=== PATIENT | male | born 1950 | race Caucasian/White ===

== ENCOUNTER 2016-09-12 16:48 | Inpatient (IN) | payer MEDICARE, BC ==
[~2016-09-12] VITALS: Ht 185.4 cm; Wt 120.3 kg
[2016-09-12] VITALS (15 sets, daily range): BP systolic 100–181; BP diastolic 74–99; PULSE 81–137; RESP 14–18; TEMP 98.1–98.7; O2SAT 95–98
[2016-09-12] MEDS ORDERED: MULT1TAB84 PO (17:00)
[2016-09-12] MEDS ORDERED: ATOR40TA16 PO (17:00)
[2016-09-12] MEDS ORDERED: PRAS10TA PO (17:00)
[2016-09-12] MEDS ORDERED: ASPI81CH37 CHEW (17:00)
--- NOTE | 2016-09-12 17:06 | PD ---
HPI Chief Complaint: Cardiac Complaint Time Seen by Provider: 16:51 Travel History International Travel<30 days: No Contact w/Intl Traveler<30days: No Traveled to known affect area: No History of Present Illness HPI The patient is a 65-year-old male who presents to the emergency department for elevated heart rate. The patient has a two-week history of elevated heart rate and palpitations, denies any chest pain, shortness of breath , increased shortness of breath with exertion, nausea, vomiting, or diaphoresis. The patient denies any history of atrial fibrillation or atrial flutter, does have a history of low heart rate secondary to medications that he was placed on after stent placement, was taken off of those medications. The patient does have a history of CAD with previous stent placement 3 years ago just outside of [place], [place]. The patient also has a history of hyperlipidemia which is controlled with atorvastatin. The patient denies any history of atrial fibrillation, atrial flutter, TIA, CVA, congestive heart failure, diabetes, or tobacco use. The patient does not currently have a primary physician. The patient denies any history of thyroid disorders. PFSH Past Medical History Narrative Medical CAD, hyperlipidemia Cardiac Catheterization: Yes High Cholesterol: Yes Coronary Artery Disease: Yes Tetanus Vaccination: Unknown Influenza Vaccination: No Past Surgical History Narrative Surgical 2 previous cardiac stents placed Body Medical Devices: Cardiac stents Social History Alcohol Use: Yes (Occ.) Tobacco Use: No Substance Use: No Allergies-Medications (Allergen,Severity, Reaction): Coded Allergies: No Known Allergies (Unverified , 09/12/16) Reported Meds & Prescriptions Reported Meds & Active Scripts Active Reported Multivitamin Adults (Multiple Vitamins W/ Minerals) 1 Tab 1 Tab PO DAILY Atorvastatin (Atorvastatin Calcium) 40 Mg Tab 40 Mg PO HS Effient (Prasugrel) 10 Mg Tab 10 Mg PO DAILY Aspirin Low Dose (Aspirin) 81 Mg Chew 81 Mg CHEW DAILY Review of Systems Except as stated in HPI: all other systems reviewed are Neg General / Constitutional: No: Fever HENT: No: Lightheadedness Cardiovascular: Positive: Palpitations, Tachycardia, No: Chest Pain or Discomfort, Diaphoresis, Dyspnea on exertion Respiratory: No: Shortness of Breath Gastrointestinal: No: Nausea, Vomiting, Abdominal Pain Musculoskeletal: No: Weakness, Edema Neurologic: No: Dizziness Physical Exam Narrative GENERAL: Awake, alert, pleasant 65-year-old male who appears his stated age and is in no acute respiratory distress. SKIN: Focused skin assessment warm/dry. HEAD: Atraumatic. Normocephalic. EYES: Pupils equal and round. No scleral icterus. No injection or drainage. ENT: No nasal bleeding or discharge. Mucous membranes pink and moist. NECK: Trachea midline. No JVD. CARDIOVASCULAR: Irregularly irregular with a heart rate in the 130s. RESPIRATORY: No accessory muscle use. Clear to auscultation. Breath sounds equal bilaterally. GASTROINTESTINAL: Abdomen soft, non-tender, nondistended. MUSCULOSKELETAL: No obvious deformities. No clubbing. No cyanosis. No edema. NEUROLOGICAL: Awake and alert. No obvious cranial nerve deficits. Motor grossly within normal limits. Normal speech. Nonfocal. PSYCHIATRIC: Appropriate mood and affect; insight and judgment normal. Data Data Last Documented VS Vital Signs Date Time Temp Pulse Resp B/P Pulse Ox O2 Delivery O2 Flow Rate FiO2 09/12/16 17:45 112 16 100/74 97 Room Air 09/12/16 17:00 98.1 Orders Ckmb (Isoenzyme) Profile (09/12/16 17:03) Complete Blood Count With Diff (09/12/16 17:03) Comprehensive Metabolic Panel (09/12/16 17:03) Magnesium (Mg) (09/12/16 17:03) Prothrombin Time / Inr (Pt) (09/12/16 17:03) Act Partial Throm Time (Ptt) (09/12/16 17:03) Chest, Single Ap (09/12/16 17:03) Ecg Monitoring (09/12/16 17:03) Bilateral Bp Monitoring (09/12/16 17:03) Iv Access Insert/Monitor (09/12/16 17:03) Oximetry (09/12/16 17:03) Oxygen Administration (09/12/16 17:03) Sodium Chloride 0.9% Flush (Ns Flush) (09/12/16 17:15) Sodium Chlorid 0.9% 500 Ml Inj (Ns 500 M (09/12/16 17:15) Diltiazem Inj (Cardizem Inj) (09/12/16 17:15) Thyroid Stimulating Hormone (09/12/16 17:06) Diltiazem Inj (Cardizem Inj) (09/12/16 17:30) CKMB (09/12/16 17:00) CKMB% (09/12/16 17:00) Sodium Chlorid 0.9% 500 Ml Inj (Ns 500 M (09/12/16 17:45) Troponin I (09/12/16 17:40) Admit Order (Ed Use Only) (09/12/16 17:56) Labs Laboratory Tests Test 09/12/16 17:00 White Blood Count 9.8 TH/MM3 Red Blood Count 5.44 MIL/MM3 Hemoglobin 17.3 GM/DL Hematocrit 50.8 % Mean Corpuscular Volume 93.3 FL Mean Corpuscular Hemoglobin 31.7 PG Mean Corpuscular Hemoglobin 34.0 % Concent Red Cell Distribution Width 12.6 % Platelet Count 243 TH/MM3 Mean Platelet Volume 8.8 FL Neutrophils (%) (Auto) 68.9 % Lymphocytes (%) (Auto) 21.9 % Monocytes (%) (Auto) 7.3 % Eosinophils (%) (Auto) 0.9 % Basophils (%) (Auto) 1.0 % Neutrophils # (Auto) 6.8 TH/MM3 Lymphocytes # (Auto) 2.1 TH/MM3 Monocytes # (Auto) 0.7 TH/MM3 Eosinophils # (Auto) 0.1 TH/MM3 Basophils # (Auto) 0.1 TH/MM3 CBC Comment DIFF FINAL Differential Comment Prothrombin Time 11.0 SEC Prothromb Time International 1.0 RATIO Ratio Activated Partial 28.5 SEC Thromboplast Time Sodium Level 139 MEQ/L Potassium Level 3.8 MEQ/L Chloride Level 103 MEQ/L Carbon Dioxide Level 27.7 MEQ/L Anion Gap 8 MEQ/L Blood Urea Nitrogen 20 MG/DL Creatinine 1.50 MG/DL Estimat Glomerular Filtration 47 ML/MIN Rate Random Glucose 120 MG/DL Calcium Level 9.3 MG/DL Magnesium Level 2.1 MG/DL Total Bilirubin 1.3 MG/DL Aspartate Amino Transf 31 U/L (AST/SGOT) Alanine Aminotransferase 37 U/L (ALT/SGPT) Alkaline Phosphatase 135 U/L Total Creatine Kinase 112 U/L Total Protein 8.2 GM/DL Albumin 4.1 GM/DL Thyroid Stimulating Hormone 2.460 uIU/ML 3rd Gen Exceptions Acute Myocardial Infarction ASA Not Given on Arrival: Already taken by patient Aspirin Comment: patient took his aspirin and his Effient MDM Medical Decision Making Medical Screen Exam Complete: Yes Emergency Medical Condition: Yes Medical Record Reviewed: Yes Interpretation(s) EKG reveals atrial flutter with variable block. Nonspecific ST changes. Heart rate 127. Laboratory Tests Test 09/12/16 17:00 White Blood Count 9.8 TH/MM3 Red Blood Count 5.44 MIL/MM3 Hemoglobin 17.3 GM/DL Hematocrit 50.8 % Mean Corpuscular Volume 93.3 FL Mean Corpuscular Hemoglobin 31.7 PG Mean Corpuscular Hemoglobin 34.0 % Concent Red Cell Distribution Width 12.6 % Platelet Count 243 TH/MM3 Mean Platelet Volume 8.8 FL Neutrophils (%) (Auto) 68.9 % Lymphocytes (%) (Auto) 21.9 % Monocytes (%) (Auto) 7.3 % Eosinophils (%) (Auto) 0.9 % Basophils (%) (Auto) 1.0 % Neutrophils # (Auto) 6.8 TH/MM3 Lymphocytes # (Auto) 2.1 TH/MM3 Monocytes # (Auto) 0.7 TH/MM3 Eosinophils # (Auto) 0.1 TH/MM3 Basophils # (Auto) 0.1 TH/MM3 CBC Comment DIFF FINAL Differential Comment Prothrombin Time 11.0 SEC Prothromb Time International 1.0 RATIO Ratio Activated Partial 28.5 SEC Thromboplast Time Sodium Level 139 MEQ/L Potassium Level 3.8 MEQ/L Chloride Level 103 MEQ/L Carbon Dioxide Level 27.7 MEQ/L Anion Gap 8 MEQ/L Blood Urea Nitrogen 20 MG/DL Creatinine 1.50 MG/DL Estimat Glomerular Filtration 47 ML/MIN Rate Random Glucose 120 MG/DL Calcium Level 9.3 MG/DL Magnesium Level 2.1 MG/DL Total Bilirubin 1.3 MG/DL Aspartate Amino Transf 31 U/L (AST/SGOT) Alanine Aminotransferase 37 U/L (ALT/SGPT) Alkaline Phosphatase 135 U/L Total Creatine Kinase 112 U/L Total Protein 8.2 GM/DL Albumin 4.1 GM/DL Chest x-ray reveals no acute disease. EKG #2 reveals atrial flutter with RVR, variable block. Nonspecific ST changes. Differential Diagnosis Differential diagnoses includes atrial fibrillation, atrial flutter, rapid ventricular response, hyperthyroidism, hyperkalemia, hypokalemia, dehydration, pulmonary embolism, congestive heart failure, CAD. Narrative Course IV was established, labs are drawn and sent, and the patient was placed on cardiac telemetry monitoring and continuous pulse oximetry monitoring. EKG was ordered and interpreted. The patient are detected aspirin and Effient earlier today, was administered Cardizem 15 mg intravenously and normal saline 500 cc. Chest x-ray was obtained. TSH and electrolytes were sent to lab. The patient' s heart rate initially came down to 100, however, elevated once again into the 120s and 130s. Patient's blood pressure came down to 100/74, therefore, he was re-bolused with normal saline 500 cc and placed on a Cardizem drip. CPK is unremarkable, chest x-ray is negative, patient will be need admission, echocardiogram, and wrist rectum fundoplication for possible anticoagulation. The patient is artery on Effient and aspirin, may need novel oral treatment for his new onset A. fib/A flutter. The patient will also need outpatient cardiology follow-up. Patient is comfortable with this plan of care. The patient does not have a local primary physician, therefore, the on-call medical service was paged for admission. Critical Care Narrative Aggregate critical care time was 35 minutes. Time to perform other separately billable procedures was not included in the critical care time. My time did not include minutes spent treating any other patients simultaneously or on activities that did not directly contribute to the patient's treatment. The services I provided to this patient were to treat and/or prevent clinically significant deterioration that could result in: Arrhythmia, nontoxic, hypoxia, pulmonary edema, cardiomyopathy, congestive heart failure. I provided critical care services requiring my management, as noted below: Chart data review, documentation time, medication orders and management, vital sign assessments/reviewing monitor data, ordering and reviewing lab tests, ordering and interpreting/reviewing x-rays and diagnostic studies, care of the patient and discussion of the patient with the admitting physicians. Physician Communication Physician Communication [facility] were paged for admission. I discussed the patient with Dr. Salinas who agrees with admission. Diagnosis Primary Impression: Atrial flutter with rapid ventricular response Admitting Information Admitting Physician Requests: Admit Condition: Stable Sebas Miles MD September 12, 2016 17:06
[2016-09-12] MEDS ORDERED: SODIUM CHLORID 0.9% 500 ML INJ 500 ML IV ONE ×2 (17:15→17:45)
[2016-09-12] MEDS ORDERED: SODIUM CHLORIDE 0.9% FLUSH 10 ML FLUSH IVF PRN (17:15)
[2016-09-12] MEDS ORDERED: DILTIAZEM HCL 25 MG/5 ML VIAL IV ONE ×2 (17:15→18:45)
[2016-09-12 17:18] LABS: AUTOMATED NEUTROPHIL # 6.8 TH/MM3 (1.8-7.7); BASOPHIL # 0.1 TH/MM3 (0-0.2); EOSINOPHIL # 0.1 TH/MM3 (0-0.4); EOSINOPHIL % 0.9 % (0.0-4.0); HEMATOCRIT 50.8 % (39.0-51.0); HEMO FLAGS DIFF FINAL; LYMPH % 21.9 % (9.0-44.0); LYMPHOCYTE # 2.1 TH/MM3 (1.0-4.8); MEAN CELL VOLUME 93.3 FL (80.0-100.0); MEAN CORPUSCULAR HEMOGLOBIN 31.7 PG (27.0-34.0); MONO % 7.3 % (0.0-8.0); NEUT % 68.9 % (16.0-70.0); PLATELET COUNT 243 TH/MM3 (150-450); RED BLOOD COUNT 5.44 MIL/MM3 (4.50-5.90); RED CELL DISTRIBUTION WIDTH 12.6 % (11.6-17.2); WHITE BLOOD COUNT 9.8 TH/MM3 (4.0-11.0)
[2016-09-12 17:30] LABS: CHLORIDE 103 MEQ/L (98-107); POTASSIUM 3.8 MEQ/L (3.5-5.1); SODIUM (NA) 139 MEQ/L (136-145)
[2016-09-12 17:34] LABS: ANION GAP 8 MEQ/L (5-15); BICARBONATE 27.7 MEQ/L (21.0-32.0); BLOOD UREA NITROGEN 20 MG/DL (7-18); MAGNESIUM 2.1 MG/DL (1.5-2.5)
[2016-09-12 17:36] LABS: APTT (PATIENT) 28.5 SEC (24.3-30.1)
[2016-09-12 17:37] LABS: ALT (GPT) 37 U/L (12-78); AST (GOT) 31 U/L (15-37); GLOMERULAR FILTRATION RATE 47 ML/MIN (>89)
[2016-09-12 17:39] LABS: TOTAL BILIRUBIN ADULT 1.3 MG/DL (0.2-1.0)
[2016-09-12] MEDS: DILTIAZEM INJ 125 MG in SODIUM CHLORIDE 0.9% INJ 100 ML IV SCH (17:39)
[2016-09-12 17:40] LABS: ALKALINE PHOSPHATASE 135 U/L (45-117); CREATINE KINASE 112 U/L (39-308)
--- NOTE | 2016-09-12 17:51 | RADHPO ---
EXAM DATE/TIME: 09/12/2016 17:23 [facility] COMPARISON: No previous studies available for comparison. INDICATIONS : Complains of rapid heart beat MEDICAL HISTORY : None. SURGICAL HISTORY : Coronary artery stent. ENCOUNTER: Initial ACUITY: 1 day PAIN SCORE: 0/10 LOCATION: Bilateral chest FINDINGS: A single view of the chest demonstrates the lungs to be symmetrically aerated without evidence of mas s, infiltrate or effusion. The cardiomediastinal contours are unremarkable. Osseous structures are intact. CONCLUSION: No acute disease. Karl Sellers MD on September 12, 2016 at 17:49 Board Certified Radiologist. This report was verified electronically.
[2016-09-12] MEDS ORDERED: ONDANSETRON HCL 4 MG/2 ML VIAL IVP PRN (18:00)
[2016-09-12] MEDS ORDERED: NALOXONE HCL 0.4 MG/ML AMP IV PRN (18:00)
[2016-09-12] MEDS ORDERED: SODIUM CHLORIDE 0.9% FLUSH 10 ML FLUSH IV FLUSH PRN (18:00)
[2016-09-12 18:30] LABS: CKMB 1.3 NG/ML (0.5-3.6)
--- NOTE | 2016-09-12 18:46 | HHI.HP ---
[facility] Service [facility] Primary Care Physician Non-Staff Admission Diagnosis new onset atrial flutter with RVR Diagnoses: (1) Atrial flutter with rapid ventricular response Diagnosis: Principal (2) CAD (coronary artery disease) Diagnosis: Secondary (3) Hx of heart artery stent Diagnosis: Secondary Travel History International Travel<30 Days: No Contact w/Intl Traveler <30 Da: No Traveled to Known Affected Are: No History of Present Illness Mr. Perez is a 65 -year-old male she is here for tachycardia. He has no prior history of abnormal heart rhythm but for the past 4 weeks he says he's been feeling progressively tachycardic. He checks his blood pressures and heart rate at home. Today his heart rate increased to over 150 and he felt lightheaded so he came in to the ER per his 's advice. She has not had any chest pain. Telemetry and EKG findings correlate with a flutter RVR. In the past he has had coronary artery disease and has 2 stents and takes Effient regularly, the stents were placed in 2014. No history of MT. She also has had hypertension in the past but since losing weight he no longer takes any treatments for this. IV diltiazem was initiated in the ER and his rates have dropped to between 110 and 130. No nausea. She is resting comfortably when seen without symptoms. No hypotension. 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 Half of the year he lives in [place] where he'll take care of his father. The other half year he lives in [place]. No other complaints. Review of Systems Constitutional: DENIES: Diaphoretic episodes, Fever, Chills Eyes: DENIES: Blurred vision, Diplopia Ears, nose, mouth, throat: DENIES: Tinnitus, Hearing loss, Vertigo Respiratory: DENIES: Apneas, Cough, Wheezing, Shortness of breath Cardiovascular: COMPLAINS OF: Palpitations, DENIES: Chest pain, Syncope Gastrointestinal: DENIES: Abdominal pain, Black stools Musculoskeletal: DENIES: Joint pain, Muscle aches Integumentary: DENIES: Abnormal pigmentation Hematologic/lymphatic: DENIES: Bruising Immunologic/allergic: DENIES: Eczema Neurologic: DENIES: Abnormal gait Psychiatric: DENIES: Anxiety, Confusion, Mood changes Past Family Social History Past Medical History Coronary artery disease Past Surgical History 2 coronary stents Reported Medications Reported Meds & Active Scripts Active Reported Multivitamin Adults (Multiple Vitamins W/ Minerals) 1 Tab 1 Tab PO DAILY Atorvastatin (Atorvastatin Calcium) 40 Mg Tab 40 Mg PO HS Effient (Prasugrel) 10 Mg Tab 10 Mg PO DAILY Aspirin Low Dose (Aspirin) 81 Mg Chew 81 Mg CHEW DAILY Allergies: Coded Allergies: No Known Allergies (Unverified , 09/12/16) Active Ordered Medications Administered Medications Medications (Trade) Dose Ordered Sig/Caio Route PRN Reason Start Time Stop Time Status Last Admin Dose Admin Diltiazem HCl 125 mg/Sodium Chloride 125 ml @ 0 mls/hr TITRATE IV 09/12/16 17:30 09/12/16 17:39 Sodium Chloride (NS 500 ml Inj) 500 ml @ 500 mls/hr BOLUS ONCE IV 09/12/16 17:45 09/12/16 18:44 09/12/16 17:45 Family History Kamille Gehrig's disease in brother Kidney disease and liver failure and other brother Social History No smoking, and frequent drinking, no drug abuse Patient lives with his in [place] and [place] Physical Exam Vital Signs Vital Signs Date Time Temp Pulse Resp B/P Pulse Ox O2 Delivery O2 Flow Rate FiO2 09/12/16 18:15 120 16 123/75 96 Room Air 09/12/16 18:00 108 14 140/81 95 Room Air 09/12/16 17:45 112 16 100/74 97 Room Air 09/12/16 17:20 116 18 111/78 95 Room Air 133/82 09/12/16 17:15 126 18 111/78 95 Room Air 09/12/16 17:05 96 Room Air 09/12/16 17:05 96 Room Air 09/12/16 17:00 98.1 137 18 134/99 96 Physical Exam GENERAL: NAD, A&Ox3 SKIN: Warm and dry. HEAD: Normocephalic. EYES: No scleral icterus. No injection or drainage. NECK: Supple, trachea midline. No JVD or lymphadenopathy. CARDIOVASCULAR: Irregularly irregular, tachycardia without murmurs, gallops, or rubs. RESPIRATORY: Breath sounds equal bilaterally. No accessory muscle use. GASTROINTESTINAL: Abdomen soft, non-tender, nondistended. MUSCULOSKELETAL: No cyanosis, or edema. Laboratory Laboratory Tests Test 09/12/16 17:00 White Blood Count 9.8 Red Blood Count 5.44 Hemoglobin 17.3 Hematocrit 50.8 Mean Corpuscular Volume 93.3 Mean Corpuscular Hemoglobin 31.7 Mean Corpuscular Hemoglobin 34.0 Concent Red Cell Distribution Width 12.6 Platelet Count 243 Mean Platelet Volume 8.8 Neutrophils (%) (Auto) 68.9 Lymphocytes (%) (Auto) 21.9 Monocytes (%) (Auto) 7.3 Eosinophils (%) (Auto) 0.9 Basophils (%) (Auto) 1.0 Neutrophils # (Auto) 6.8 Lymphocytes # (Auto) 2.1 Monocytes # (Auto) 0.7 Eosinophils # (Auto) 0.1 Basophils # (Auto) 0.1 CBC Comment DIFF FINAL Differential Comment Prothrombin Time 11.0 Prothromb Time International 1.0 Ratio Activated Partial 28.5 Thromboplast Time Sodium Level 139 Potassium Level 3.8 Chloride Level 103 Carbon Dioxide Level 27.7 Anion Gap 8 Blood Urea Nitrogen 20 Creatinine 1.50 Estimat Glomerular Filtration 47 Rate Random Glucose 120 Calcium Level 9.3 Magnesium Level 2.1 Total Bilirubin 1.3 Aspartate Amino Transf 31 (AST/SGOT) Alanine Aminotransferase 37 (ALT/SGPT) Alkaline Phosphatase 135 Total Creatine Kinase 112 Creatine Kinase MB 1.3 Total Protein 8.2 Albumin 4.1 Thyroid Stimulating Hormone 2.460 3rd Gen Result Diagram: 09/12/16 1700 09/12/16 1700 Imaging Last Impressions Chest X-Ray 09/12/16 170 Signed Impressions: Service Date/Time: Monday, September 12, 2016 17:23 - CONCLUSION: No acute disease. Karl Sellers MD Assessment and Plan Problem List: (1) CAD (coronary artery disease) ICD Code: I25.10 Status: Acute (2) Atrial flutter with rapid ventricular response ICD Code: I48.92 Status: Acute (3) Hx of heart artery stent ICD Code: Z95.5 Status: Acute Assessment and Plan A flutter with RVR Diltiazem IV titration Monitor for resolution of arrhythmia Follow troponin to ensure no MT relation Echocardiogram to rule out structural causes Stress test in a.m. to rule out ischemic causes Coronary artery disease History of 2 coronary stents Continue statin Continue aspirin Continue Effient DVT prophylaxis Lovenox Physician Certification 2 Midnight Certification Type: Admission for Inpatient Services Order for Inpatient Services The services are ordered in accordance with Medicare regulations or non- Medicare payer requirements, as applicable. In the case of services not specified as inpatient-only, they are appropriately provided as inpatient services in accordance with the 2-midnight benchmark. Estimated LOS (days): 2 days is the estimated time the patient will need to remain in the hospital, assuming treatment plan goals are met and no additional complications. Post-Hospital Plan: Home Demetri Salinas MD September 12, 2016 6:45 pm
[2016-09-12] MEDS: SODIUM CHLOR 0.9% 1000 ML INJ 1,000 ML IV SCH (18:48)
[2016-09-12] MEDS: ENOXAPARIN SODIUM 40 MG/0.4 ML SYRINGE SQ SCH (19:35)
[2016-09-12] MEDS: SODIUM CHLORIDE 0.9% FLUSH 10 ML FLUSH IV FLUSH SCH (20:53)
[2016-09-12] MEDS: ATORVASTATIN 40 MG TAB PO SCH (21:00)
[2016-09-13] VITALS (13 sets, daily range): BP systolic 100–155; BP diastolic 70–103; PULSE 57–130; RESP 16–20; TEMP 87–97.7; O2SAT 96–98
[2016-09-13] MEDS: SODIUM CHLOR 0.9% 1000 ML INJ 1,000 ML IV SCH (05:29)
[2016-09-13] MEDS: DILTIAZEM INJ 125 MG in SODIUM CHLORIDE 0.9% INJ 100 ML IV SCH (05:29)
[2016-09-13] MEDS: SODIUM CHLORIDE 0.9% FLUSH 10 ML FLUSH IV FLUSH SCH ×2 (08:14→20:50)
[2016-09-13] MEDS: PRASUGREL 10 MG TAB PO SCH (08:14)
[2016-09-13] MEDS: MULTIVITAMINS/MINERALS THERAPEUTIC TAB PO SCH (08:14)
[2016-09-13] MEDS: ASPIRIN 81 MG CHEW TAB CHEW SCH (08:14)
[2016-09-13 08:58] LABS: POTASSIUM 4.3 MEQ/L (3.5-5.1)
[2016-09-13 09:01] LABS: BICARBONATE 25.5 MEQ/L (21.0-32.0)
[2016-09-13 09:05] LABS: AUTOMATED NEUTROPHIL # 4.5 TH/MM3 (1.8-7.7); BASOPHIL % 0.6 % (0.0-2.0); EOSINOPHIL # 0.2 TH/MM3 (0-0.4); EOSINOPHIL % 2.3 % (0.0-4.0); HEMATOCRIT 47.8 % (39.0-51.0); HEMO FLAGS DIFF FINAL; LYMPH % 21.3 % (9.0-44.0); LYMPHOCYTE # 1.4 TH/MM3 (1.0-4.8); MEAN CORPUSCULAR HEMOGLOBIN 30.7 PG (27.0-34.0); MEAN CORPUSCULAR HGB CONC 32.7 % (32.0-36.0); MONO % 6.9 % (0.0-8.0); NEUT % 68.9 % (16.0-70.0); PLATELET COUNT 202 TH/MM3 (150-450); RED BLOOD COUNT 5.08 MIL/MM3 (4.50-5.90); RED CELL DISTRIBUTION WIDTH 13.1 % (11.6-17.2); WHITE BLOOD COUNT 6.6 TH/MM3 (4.0-11.0)
[2016-09-13] MEDS: DILTIAZEM-CD 120 MG CAP ER PO SCH (09:27)
--- NOTE | 2016-09-13 10:26 | HHI.PR ---
Subjective Remarks Heart rate now controlled and within normal limits. He remains in a flutter and has not yet returned to normal sinus rhythm. Stress test is pending. Troponins remained low. 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 Objective Vital Signs Date Time Temp Pulse Resp B/P Pulse Ox O2 Delivery O2 Flow Rate FiO2 09/13/16 08:00 87.0 107 19 119/91 98 09/13/16 05:12 97.1 64 16 125/78 97 09/13/16 00:49 97.0 60 18 120/79 96 09/12/16 22:19 98.7 87 16 131/80 98 09/12/16 21:34 82 18 96 09/12/16 21:33 81 09/12/16 21:00 82 16 127/79 98 Room Air 09/12/16 20:00 84 16 133/77 97 Room Air 09/12/16 19:38 82 16 132/76 97 Room Air 09/12/16 19:09 88 16 156/80 97 Room Air 09/12/16 18:45 126 16 181/90 98 Room Air 09/12/16 18:35 121 16 150/95 97 Room Air 09/12/16 18:15 120 16 123/75 96 Room Air 09/12/16 18:00 108 14 140/81 95 Room Air 09/12/16 17:45 112 16 100/74 97 Room Air 09/12/16 17:20 116 18 111/78 95 Room Air 133/82 09/12/16 17:15 126 18 111/78 95 Room Air 09/12/16 17:05 96 Room Air 09/12/16 17:05 96 Room Air 09/12/16 17:00 98.1 137 18 134/99 96 I/O 09/12/16 09/12/16 09/12/16 09/13/16 09/13/16 09/13/16 07:00 15:00 23:00 07:00 15:00 23:00 Intake Total 583 ml 964 ml Balance 583 ml 964 ml Intake IV Total 583 ml 964 ml # Voids 1 Result Diagram: 09/13/16 0844 09/13/16 0844 Imaging Last Impressions Chest X-Ray 09/12/16 1703 Signed Impressions: Service Date/Time: Monday, September 12, 2016 17:23 - CONCLUSION: No acute disease. Karl Sellers MD Objective Remarks GENERAL: NAD, A&Ox3 SKIN: Warm and dry. HEAD: Normocephalic. EYES: No scleral icterus. No injection or drainage. NECK: Supple, trachea midline. No JVD or lymphadenopathy. CARDIOVASCULAR: Irregularly irregular rhythm without murmurs, gallops, or rubs. RESPIRATORY: Breath sounds equal bilaterally. No accessory muscle use. GASTROINTESTINAL: Abdomen soft, non-tender, nondistended. MUSCULOSKELETAL: No cyanosis, or edema. Medications and IVs Administered Medications Medications (Trade) Dose Ordered Sig/Caio Route PRN Reason Start Time Stop Time Status Last Admin Dose Admin Sodium Chloride (NS 1000 ml Inj) 1,000 ml @ 83 mls/hr Q12H3M IV 09/12/16 17:56 09/13/16 05:29 Enoxaparin Sodium (Lovenox Inj) 40 mg Q24H SQ 09/12/16 20:00 09/12/16 19:35 Aspirin (Aspirin Chew) 81 mg DAILY CHEW 09/13/16 09:00 09/13/16 08:14 Multivitamins/ Minerals Therapeutic (Theragran M Tab) 1 tab DAILY PO 09/13/16 09:00 09/13/16 08:14 Prasugrel (Effient) 10 mg DAILY PO 09/13/16 09:00 09/13/16 08:14 Diltiazem HCl (Cardizem Cd) 120 mg DAILY PO 09/13/16 09:00 09/13/16 09:27 A/P Problem List: (1) CAD (coronary artery disease) ICD Code: I25.10 (2) Atrial flutter with rapid ventricular response ICD Code: I48.92 (3) Hx of heart artery stent ICD Code: Z95.5 Assessment and Plan Assessment and Plan 65-year-old male with new onset atrial flutter admitted with RVR. Negative workup thus far. Stress test pending. Cardiology consult as patient has not returned to sinus rhythm with treatment. A flutter with RVR Diltiazem IV titration transitioned to by mouth diltiazem Monitor for resolution of arrhythmia Troponin trend remained low slight elevation may be related to tachycardia Echocardiogram pending to rule out structural causes Stress test pending to rule out ischemic causes Coronary artery disease History of 2 coronary stents Continue statin Continue aspirin Continue Effient DVT prophylaxis Demetri Stanley MD September 13, 2016 10:26 am
[2016-09-13] MEDS ORDERED: REGADENOSON INJ 0.4 MG/5 ML SYR IV ONE (13:03)
[2016-09-13] MEDS ORDERED: DILTIAZEM HCL 30 MG TAB PO PRN (14:45)
--- NOTE | 2016-09-13 15:50 | MB ---
cc: RODOLFO LEAHY MD DATE OF CONSULTATION: 09/13/2016. REASON FOR CONSULTATION: New onset atrial fibrillation. HISTORY OF PRESENT ILLNESS: The patient is a 65-year-old man who does have a history of coronary stent approximately three years ago. He denies any other cardiac problems. He specifically denies any prior history atrial fibrillation. He admits that over the last three to four weeks his heart rate has been up when he checks his blood pressure. He reports to me that he has been essentially completely asymptomatic. After this had been going on for several weeks, he noticed his blood pressure dipping and subsequently sought attention in the emergency room. I do note that this is slightly different than what is in the attending's history and physical. In any case, the patient was found in the emergency room to be in atrial fibrillation with rapid ventricular rate. He denies any current chest pain or shortness of breath. 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 He is here taking care of his father. PAST MEDICAL HISTORY: Significant for: 1. Coronary artery disease status post stent. 2. Obesity. 3. He denies any history of hypertension, diabetes, congestive heart failure or TIA. 4. Dyslipidemia. OUTPATIENT MEDICATIONS: Include: 1. Aspirin. 2. Effient. 3. Atorvastatin. FAMILY HISTORY: Positive for Kamille Gehrig's disease. Negative for coronary artery disease. SOCIAL HISTORY: The patient does not smoke. REVIEW OF SYSTEMS: Except as mentioned the HPI all twelve systems are negative. ALLERGIES: NO KNOWN DRUG ALLERGIES. PHYSICAL EXAMINATION: VITAL SIGNS: On physical exam, vital signs are 97.1, 115, 19, 119/91. GENERAL: In general, he is an obese man who is in no apparent distress. NECK: The neck is free from jugular venous distention. LUNGS: The lungs are bilaterally clear to auscultation. CARDIOVASCULAR: On cardiovascular examination, he has a normal S1 and S2. I do not appreciate any murmurs, rubs or gallops. ABDOMEN: The abdomen is soft. EXTREMITIES: The extremities are free from edema. LABORATORY FINDINGS: Significant for a TSH of 2.5. His creatinine is 1.1. Serial troponins of 0.04 / 0.07 / 0.05. EKG shows atrial fibrillation with rapid ventricular rate. IMPRESSION: 1. New-onset atrial fibrillation - the patient presents with essentially a three week history atrial fibrillation. His [id number] score is essentially 1 with a point for being 65. The patient had been on aspirin and Effient, which is reasonable to continue at this point. His rate control is suboptimal and I will add the short-acting Cardizem as a p.r.n. while we titrate up and get the blood vessels therapeutic on the Cardizem CD. The patient is undergoing a stress test. Echocardiogram is pending. Recent TSH was normal. If the nuclear stress test is nonischemic, and he is rate-controlled, it would be reasonable for him to be discharged. 2. Indeterminate troponin - The patient had a troponin of 0.07. This is most likely secondary to his atrial fibrillation with rapid ventricular response. 3. Coronary artery disease - This is seemingly stable. 4. Dyslipidemia - I agree with continuing the patient on a statin. Rodolfo Leahy M.D. TIMMY/JOHN /2:48 PM /3:44 PM
--- NOTE | 2016-09-13 16:53 | ECHLIM ---
Study Study Date:09/13/2016 STUDY CONCLUSIONS SUMMARY LEFT VENTRICLE: Wall thickness was increased in a pattern of mild LVH. Systolic function was normal. The estimated ejection fraction was in the range of 60% to 65%. If LV function is below 40, please consider prescribing an ACEI or ARB or document rationale for non-use. PROCEDURE DATA Procedure: Transthoracic echocardiography. Image quality was fair. Scanning was performed from the parasternal, apical, and subcostal acoustic windows. Study completion: The patient tolerated the procedure well. Transthoracic echocardiography. M-mode, limited 2D, limited spectral Doppler, and color Doppler. Height: Height: 73in. Weight: Weight: 263.5lb. Body mass index: BMI: 34.8kg/m^2. Body surface area: BSA: 2.42m^2. CARDIAC ANATOMY LEFT VENTRICLE: Wall thickness was increased in a pattern of mild LVH. Systolic function was normal. The estimated ejection fraction was in the range of 60% to 65%. Patient weight: 263.5lb _Ejection fraction:_ 65-75% _Fractional shortening:_ 32% up to 5Kg 5-11.5Kg 11.6-22.9Kg 23-45Kg 45-57Kg Aortic Root 7-13 <17 13-22 17-27 17-27 LA diam 6-13 <23 24-38 33-47 37-40 RVID 10-17 7-15 7-15 7-18 8-17 LVIDd 12-22 <32 24-38 33-47 37-40 LVPW 2-4 3-6 5-7 6-8 7-8 IVS 2-4 3-6 5-7 6-8 7-8 BASIC MEASUREMENTS ADULT NORMAL Left ventricle LV internal dimension, ED, chordal level, *41.2 mm 43-52 PLAX LV internal dimension, ES, chordal level, 29.3 mm 23-38 PLAX Fractional shortening, chordal level, *29 % >29 PLAX LV posterior wall thickness, ED 16.8 mm IVS/LVPW ratio, ED 1.05 <1.3 Volume, ED, MOD, 1-plane 73 ml Volume, ES, MOD, 1-plane 30 ml Ejection fraction, MOD, 1-plane 59 % Stroke volume, MOD, 1-plane 43 ml Volume index, ED, MOD, 1-plane 30 ml/m^2 Volume index, ES, MOD, 1-plane 12 ml/m^2 Stroke index, MOD, 1-plane 17.8 ml/m^2 Ventricular septum Septal thickness, ED 17.6 mm LEGEND: Mean values are shown as u=mean value. Asterisk (*) lynn values outside specified normal range. Prepared and signed by Cassidy Dewitt [id number]
--- NOTE | 2016-09-13 16:57 | EKG ---
Date Performed: 09/12/2016 Time Performed: 16:48:22 PTAGE: 65 years EKG: Possible atrial flutter with rapid ventricular response. Extensive ST-T changes Abnormal EC G NO PREVIOUS TRACING DOCTOR: Cassidy Dewitt Interpretating Date/Time 09/13/2016 16:55:33
--- NOTE | 2016-09-13 16:57 | EKG ---
Date Performed: 09/12/2016 Time Performed: 17:44:48 PTAGE: 65 years EKG: Atrial flutter with rapid ventricular response Extensive ST-T changes Compared to prior tra cing no significant change Abnormal ECG PREVIOUS TRACING : 09/12/2016 16.48 DOCTOR: Cassidy Dewitt Interpretating Date/Time 09/13/2016 16:55:48
[2016-09-13] MEDS ORDERED: DILTIAZEM HCL 25 MG/5 ML VIAL IVP ONE (17:00)
--- NOTE | 2016-09-13 17:02 | HHI.FPPN ---
Addendum to progress note ADDENDUM Reason for addendum: Additonal documentation Additional information 1645: I was informed by RN that patient's HR is sustained in the 130's after receiving po prn Diltiazem ~1.5 hours ago. No evidence of hypotension. Discussed with Dr. Salinas. Will bolus with 15 mg Diltiazem IV and resume drip with close monitoring of vitals. Diane Cruz September 13, 2016 17:02
[2016-09-13] MEDS ORDERED: DILTIAZEM INJ 125 MG in SODIUM CHLORIDE 0.9% INJ 100 ML IV SCH (18:00)
[2016-09-13] MEDS: ENOXAPARIN SODIUM 40 MG/0.4 ML SYRINGE SQ SCH (20:50)
[2016-09-13] MEDS: ATORVASTATIN 40 MG TAB PO SCH (20:50)
[2016-09-14] VITALS (13 sets, daily range): BP systolic 105–143; BP diastolic 69–104; PULSE 46–122; RESP 16–19; TEMP 96.4–98.6; O2SAT 94–98
[2016-09-14] MEDS: ASPIRIN 81 MG CHEW TAB CHEW SCH (08:32)
[2016-09-14] MEDS: DILTIAZEM-CD 120 MG CAP ER PO SCH (08:32)
[2016-09-14] MEDS: MULTIVITAMINS/MINERALS THERAPEUTIC TAB PO SCH (08:32)
[2016-09-14] MEDS: SODIUM CHLORIDE 0.9% FLUSH 10 ML FLUSH IV FLUSH SCH ×2 (08:34→20:57)
[2016-09-14] MEDS: PRASUGREL 10 MG TAB PO SCH ×2 (08:34→10:30)
--- NOTE | 2016-09-14 09:48 | RADHPO ---
EXAM DATE/TIME: 09/13/2016 12:56 [facility] COMPARISON: No previous studies available for comparison. INDICATIONS : Atrial flutter with RVR. Coronary artery disease. Abnormal EKG. DOSE: 30.1 mCi Tc99m Myoview at stress. 31.4 mCi Tc99m Myoview at rest. 0.4 mg Lexiscan STRESS SYMPTOMS: Heart racing. EJECTION FRACTION: 60% MEDICAL HISTORY : Hypertension. SURGICAL HISTORY : Coronary artery stent. ENCOUNTER: Initial ACUITY: 2 days PAIN SCALE: 0/10 LOCATION: chest TECHNIQUE: The patient underwent pharmacologic stress with infusion of prescribed dose. Continuous ECG tracing was monitored during stress. Gated SPECT imaging was performed after stress and conventional SPECT i maging was performed at rest. The examination was performed on a SPECT/CT scanner, both attenuation and non-corrected datasets were reviewed. FINDINGS: DISTRIBUTION: The maximum perfused segment at stress is in the anteroseptal wall. PERFUSION STUDY: The pattern of perfusion at stress is within normal limits. GATED STUDY: There is intact wall motion and thickening without hypokinetic or dyskinetic segments. CONCLUSION: Normal examination. RISK CATEGORY: Low (<1% Annual Mortality Rate) Karl Ortega MD on September 14, 2016 at 9:44 Board Certified Radiologist. This report was verified electronically.
[2016-09-14] MEDS ORDERED: DILTIAZEM HCL 30 MG TAB PO ONE (10:00)
[2016-09-14] MEDS ORDERED: DILTIAZEM-CD 120 MG CAP ER PO ONE (10:00)
[2016-09-14] MEDS ORDERED: DIGOXIN 0.5 MG/2 ML VIAL IV PUSH ONE (13:30)
[2016-09-14] MEDS ORDERED: DILTIAZEM INJ 125 MG in SODIUM CHLORIDE 0.9% INJ 100 ML IV SCH (13:30)
[2016-09-14] MEDS ORDERED: DILTIAZEM HCL 25 MG/5 ML VIAL IV ONE (13:30)
--- NOTE | 2016-09-14 13:53 | PD.CARD.PN ---
Subjective Subjective Remarks PT feels fine and wants d/c Objective Medications Current Medications Medications (Trade) Dose Ordered Sig/Caio Route Start Time Stop Time Status Last Admin (NS Flush) 2 ml UNSCH PRN IV FLUSH 09/12/16 18:00 (NS Flush) 2 ml BID IV FLUSH 09/12/16 21:00 09/13/16 20:50 (Zofran Inj) 4 mg Q6H PRN IVP 09/12/16 18:00 (Lovenox Inj) 40 mg Q24H SQ 09/12/16 20:00 09/13/16 20:50 (Narcan Inj) 0.4 mg UNSCH PRN IV 09/12/16 18:00 (Aspirin Chew) 81 mg DAILY CHEW 09/13/16 09:00 09/14/16 08:32 (Lipitor) 40 mg HS PO 09/12/16 21:00 09/13/16 20:50 (Theragran M Tab) 1 tab DAILY PO 09/13/16 09:00 09/14/16 08:32 (Effient) 10 mg DAILY PO 09/13/16 09:00 09/14/16 10:30 (Cardizem Cd) 120 mg DAILY PO 09/13/16 09:00 09/14/16 08:32 Diltiazem HCl 30 mg 30 mg Q6HR PRN PO 09/13/16 14:45 Hold 09/13/16 15:00 (Cardizem Inj/NS Inj) 125 ml @ 0 mls/hr TITRATE IV 09/14/16 13:30 Vital Signs / I&O Vital Signs Date Time Temp Pulse Resp B/P Pulse Ox O2 Delivery O2 Flow Rate FiO2 09/14/16 13:08 97.4 88 18 115/74 97 09/14/16 10:33 96 143/85 09/14/16 08:23 96.4 94 19 125/81 98 09/14/16 08:00 122 09/14/16 08:00 122 09/14/16 04:50 97.0 50 16 105/69 98 09/14/16 00:19 98.2 46 18 121/70 97 09/13/16 23:00 67 09/13/16 21:05 97.7 65 16 100/70 98 09/13/16 20:00 73 09/13/16 18:45 90 5/21/17 18:02 105 09/13/16 16:30 130 09/13/16 16:00 96.8 97 20 155/103 96 09/13/16 15:00 130 I/O 09/13/16 09/13/16 09/13/16 09/14/16 09/14/16 09/14/16 07:00 15:00 23:00 07:00 15:00 23:00 Intake Total 964 ml 1000 ml 45 ml Balance 964 ml 1000 ml 45 ml Intake Oral 550 ml IV Total 964 ml 450 ml 45 ml # Voids 4 3 # Bowel Movements 0 Physical Exam GENERAL: Well developed, well nourished. No acute distress. HEENT: Jugular venous pressure is normal. CHEST: Lungs clear to auscultation bilaterally. Unlabored respiratory effort. CARDIAC: irregular rate and rhythm without S3, S4, or murmur. ABDOMEN: Soft, nontender, no hepatosplenomegaly. Bowel sounds present. EXTREMITIES: No clubbing, cyanosis, or edema. Assessment and Plan Assessment and Plan AF - RVR currently at 115 -agree with dig and increase in PO diltizem, hold off on gtt -CHADS VASC=1 for 65; on aspirin and effient CAD- stable and nuc stress is normal Cassidy Dewitt MD September 14, 2016 13:53
--- NOTE | 2016-09-14 14:56 | HHI.PR ---
Subjective Remarks Tachycardia returns intermittently. She had a stress test completed today which shows no evidence of ischemia. Cardizem was increased. Digoxin has been added. Further monitoring needed overnight. Objective Vital Signs Date Time Temp Pulse Resp B/P Pulse Ox O2 Delivery O2 Flow Rate FiO2 09/14/16 13:08 97.4 88 18 115/74 97 09/14/16 10:33 96 143/85 09/14/16 08:23 96.4 94 19 125/81 98 09/14/16 08:00 122 09/14/16 08:00 122 09/14/16 04:50 97.0 50 16 105/69 98 09/14/16 00:19 98.2 46 18 121/70 97 09/13/16 23:00 67 09/13/16 21:05 97.7 65 16 100/70 98 09/13/16 20:00 73 09/13/16 18:45 90 09/13/16 18:02 105 09/13/16 16:30 130 09/13/16 16:00 96.8 97 20 155/103 96 09/13/16 15:00 130 I/O 09/13/16 09/13/16 09/13/16 09/14/16 09/14/16 09/14/16 07:00 15:00 23:00 07:00 15:00 23:00 Intake Total 964 ml 1000 ml 45 ml Balance 964 ml 1000 ml 45 ml Intake Oral 550 ml IV Total 964 ml 450 ml 45 ml # Voids 4 3 # Bowel Movements 0 Result Diagram: 09/13/16 0844 09/13/16 0844 Imaging Last Impressions Myocardial Perfusion Scan Nuc Med 09/13/16 0000 Signed Impressions: Service Date/Time: Tuesday, September 13, 2016 12:56 - CONCLUSION: Normal examination. RISK CATEGORY: Low (<1%% Annual Mortality Rate) Karl Ortega MD Chest X-Ray 09/12/16 1703 Signed Impressions: Service Date/Time: Monday, September 12, 2016 17:23 - CONCLUSION: No acute disease. Karl Sellers MD Objective Remarks GENERAL: NAD, A&Ox3 SKIN: Warm and dry. HEAD: Normocephalic. EYES: No scleral icterus. No injection or drainage. NECK: Supple, trachea midline. No JVD or lymphadenopathy. CARDIOVASCULAR: Irregularly irregular rhythm without murmurs, gallops, or rubs. RESPIRATORY: Breath sounds equal bilaterally. No accessory muscle use. GASTROINTESTINAL: Abdomen soft, non-tender, nondistended. MUSCULOSKELETAL: No cyanosis, or edema. Medications and IVs Administered Medications Medications (Trade) Dose Ordered Sig/Caio Route PRN Reason Start Time Stop Time Status Last Admin Dose Admin Sodium Chloride (NS Flush) 2 ml BID IV FLUSH 09/12/16 21:00 09/13/16 20:50 Enoxaparin Sodium (Lovenox Inj) 40 mg Q24H SQ 09/12/16 20:00 09/13/16 20:50 Aspirin (Aspirin Chew) 81 mg DAILY CHEW 09/13/16 09:00 09/14/16 08:32 Atorvastatin Calcium (Lipitor) 40 mg HS PO 09/12/16 21:00 09/13/16 20:50 Multivitamins/ Minerals Therapeutic (Theragran M Tab) 1 tab DAILY PO 09/13/16 09:00 09/14/16 08:32 Prasugrel (Effient) 10 mg DAILY PO 09/13/16 09:00 09/14/16 10:30 A/P Problem List: (1) CAD (coronary artery disease) ICD Code: I25.10 (2) Atrial flutter with rapid ventricular response ICD Code: I48.92 (3) Hx of heart artery stent ICD Code: Z95.5 Assessment and Plan Assessment and Plan 65-year-old male with new onset atrial flutter admitted with RVR. Negative workup. Stress test shows no evidence of ischemia. His rate is not yet controlled. Cardizem increased. Digoxin started. A flutter with RVR Diltiazem IV titration transitioned to by mouth diltiazem Monitor for resolution of arrhythmia Troponin trend remained low slight elevation may be related to tachycardia Echocardiogram pending to rule out structural causes Stress test pending to rule out ischemic causes Coronary artery disease History of 2 coronary stents Continue statin Continue aspirin Continue Effient DVT prophylaxis Demetri Stanley MD September 14, 2016 2:56 pm
[2016-09-14] MEDS: ENOXAPARIN SODIUM 40 MG/0.4 ML SYRINGE SQ SCH (20:55)
[2016-09-14] MEDS: ATORVASTATIN 40 MG TAB PO SCH (20:56)
[2016-09-14] MEDS: DIGOXIN 0.5 MG/2 ML VIAL IV PUSH SCH (20:56)
[2016-09-15] VITALS: BP 122/81; PULSE 63; RESP 18; TEMP 97.8; O2SAT 94
[2016-09-15] MEDS: DIGOXIN 0.5 MG/2 ML VIAL IV PUSH SCH (02:42)
[2016-09-15 04:00] VITALS: BP 136/81; PULSE 62; RESP 16; TEMP 96.8; O2SAT 98
[2016-09-15 08:00] VITALS: PULSE 64
[2016-09-15 08:40] VITALS: BP 143/87; PULSE 63; RESP 19; TEMP 96.4; O2SAT 99
[2016-09-15] MEDS ORDERED: DIGOXIN 0.125 MG TAB PO SCH (09:00)
[2016-09-15] MEDS ORDERED: DILTIAZEM-CD 300 MG CAP ER PO SCH (09:00)
[2016-09-15] MEDS ORDERED: DILT300C3 PO (09:11)
[2016-09-15] MEDS ORDERED: DIGO0.12 PO (09:11)
[2016-09-15] MEDS: ASPIRIN 81 MG CHEW TAB CHEW SCH (09:27)
[2016-09-15] MEDS: MULTIVITAMINS/MINERALS THERAPEUTIC TAB PO SCH (09:27)
[2016-09-15] MEDS: PRASUGREL 10 MG TAB PO SCH (09:28)
--- NOTE | 2016-09-15 11:48 | HHI.DS ---
Discharge Summary Admission Date September 12, 2016 at 6:09 pm Discharge Date: September 15, 2016 Admitting Diagnosis new onset atrial flutter with RVR (1) CAD (coronary artery disease) ICD Code: I25.10 Diagnosis: Secondary (2) Atrial flutter with rapid ventricular response ICD Code: I48.92 Diagnosis: Principal (3) Hx of heart artery stent ICD Code: Z95.5 Diagnosis: Secondary Procedures Stress test Brief History - From Admission Mr. Perez is a 65 -year-old male she is here for tachycardia. He has no prior history of abnormal heart rhythm but for the past 4 weeks he says he's been feeling progressively tachycardic. He checks his blood pressures and heart rate at home. Today his heart rate increased to over 150 and he felt lightheaded so he came in to the ER per his 's advice. She has not had any chest pain. Telemetry and EKG findings correlate with a flutter RVR. In the past he has had coronary artery disease and has 2 stents and takes Effient regularly, the stents were placed in 2014. No history of OH. She also has had hypertension in the past but since losing weight he no longer takes any treatments for this. IV diltiazem was initiated in the ER and his rates have dropped to between 110 and 130. No nausea. She is resting comfortably when seen without symptoms. No hypotension. 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 Half of the year he lives in [place] where he'll take care of his father. The other half year he lives in [place]. No other complaints. CBC/BMP: 09/13/16 0844 09/13/16 0844 Significant Findings Laboratory Tests Test 09/12/16 09/13/16 09/13/16 17:00 00:05 08:44 Hemoglobin 17.3 GM/DL (13.0-17.0) Blood Urea Nitrogen 20 MG/DL (7-18) Creatinine 1.50 MG/DL (0.60-1.30) Estimat Glomerular Filtration 47 ML/MIN (>89) 67 ML/MIN (>89) Rate Random Glucose 120 MG/DL (74-106) Total Bilirubin 1.3 MG/DL (0.2-1.0) Alkaline Phosphatase 135 U/L (45-117) Troponin I 0.07 NG/ML (0.02-0.05) Chloride Level 109 MEQ/L (98-107) Calcium Level 8.2 MG/DL (8.5-10.1) Imaging Last Impressions Myocardial Perfusion Scan Nuc Med 09/13/16 0000 Signed Impressions: Service Date/Time: Tuesday, September 13, 2016 12:56 - CONCLUSION: Normal examination. RISK CATEGORY: Low (<1%% Annual Mortality Rate) Karl Ortega MD Chest X-Ray 09/12/16 1703 Signed Impressions: Service Date/Time: Monday, September 12, 2016 17:23 - CONCLUSION: No acute disease. Karl Sellers MD PE at Discharge GENERAL: NAD, A&Ox3 SKIN: Warm and dry. HEAD: Normocephalic. EYES: No scleral icterus. No injection or drainage. NECK: Supple, trachea midline. No JVD or lymphadenopathy. CARDIOVASCULAR: Irregularly irregular without murmurs, gallops, or rubs. RESPIRATORY: Breath sounds equal bilaterally. No accessory muscle use. GASTROINTESTINAL: Abdomen soft, non-tender, nondistended. MUSCULOSKELETAL: No cyanosis, or edema. Hospital Course Mr. Perez is a 65-year-old male. He was admitted secondary to tachycardia with symptoms of presyncope and dizziness. Etiology was found to be a flutter with RVR. With diltiazem his heart rate had slowed but he had intermittent spells of tachycardia. Workup including cardiac enzymes and stress test were negative for any ischemic etiology. When attempts to change to by mouth Cardizem occurred she would become tachycardic again. Baseline Cardizem dosing has been increased to 300 mg daily and digoxin have been added. This morning he is rate controlled since last night. His rhythm is now atrial fibrillation with rate control. His CHACVAC score is 1. He'll be discharged on aspirin and is on Effient already, for which she'll follow up with his textile engineer [facility]. Medically stable for discharge today on the treatments of Cardizem and digoxin. He'll resume other prior treatments. Pt Condition on Discharge: Stable Discharge Disposition: Discharge Home Discharge Time: <= 30 minutes Discharge Instructions DIET: Follow Instructions for: As Tolerated, No Restrictions Activities you can perform: Regular-No Restrictions Follow up Referrals: Cardiology - 2 Weeks with [facility] PCP Follow-up - 4 Weeks New Medications: Digoxin (Digoxin) 0.125 Mg Tab 0.125 MG PO DAILY Arrythmia #30 TAB Diltiazem CD 24 HR (Diltiazem CD 24 HR) 300 Mg Caper 300 MG PO DAILY Arrhythmia #30 CAP Continued Medications: Aspirin (Aspirin Low Dose) 81 Mg Chew 81 MG CHEW DAILY Ref 0 TAB Atorvastatin (Atorvastatin) 40 Mg Tab 40 MG PO HS Cholesterol Management #30 Ref 0 TAB Multiple Vitamins W/ Minerals (Multivitamin Adults) 1 Tab 1 TAB PO DAILY Nutritional Supplement Ref 0 TAB Prasugrel (Effient) 10 Mg Tab 10 MG PO DAILY Blood Clot Prevention #30 Ref 0 TAB Demetri Salinas MD September 15, 2016 11:47 am
== END 2016-09-15 09:48 | disposition home or self-care (01) | DRG 310 ==
LOC: PHED 16:48 → PHEDA 18:09 → PH3A 21:23
PROVIDERS: ADMIT Hospitalist; ATTEND Hospitalist
DX: I48.92 Unspecified atrial flutter (principal); E78.5 Hyperlipidemia, unspecified; E66.9 Obesity, unspecified; Z68.35 Body mass index [BMI] 35.0-35.9, adult; I25.10 Atherosclerotic heart disease of native coronary artery without angina pectoris; Z95.5 Presence of coronary angioplasty implant and graft; Z79.02 Long term (current) use of antithrombotics/antiplatelets; Z79.82 Long term (current) use of aspirin
CPT/HCPCS: 71010; 78452; 80048; 80053; 82550; 82552; 83735; 84443; 84484; 85025; 85610; 85730; 93005; 93017; 93308; 96365; 96376; A9502; J1160; J1650; J2785; J7030; J7040